=== PATIENT | male | born 1945 | race Caucasian/White ===

== ENCOUNTER → 2020-05-25 | Outpatient (CLI) | payer MEDICARE ==
--- NOTE | 2020-05-25 08:59 | BD ---
EXAMINATION TYPE: Axial Bone Density DATE OF EXAM: 05/25/2020 COMPARISON: 07/12/2010 CLINICAL HISTORY: Height: 61 IN Weight: 129 LBS FRAX RISK QUESTIONS: Family History (Parent hip fracture): YES FATHER RISK FACTORS HISTORY OF: History of Wrist Fracture: YES RT WRIST APPROX AGE 38 Family History of Osteoporosis: YES FATHER Active: YES Diet low in dairy products/other sources of calcium: YES MEDICATIONS: Additional Medications: CALCIUM, VIT D, BLOOD PRESSURE MEDS, CHOLESTEROL MEDS EXAM MEASUREMENTS: Bone mineral densitometry was performed using the [employer] System. Bone mineral density as measured about the Lumbar spine is: ----- L1-L4(G/cm2): 1.159 T Score Values are as follows: ----- L2: -1.2 ----- L3: 0.0 ----- L4: 1.1 ----- L1-L4: -0.2 Bone mineral density has: Increased 6.4% since study of: 07/12/2010 Bone mineral density about the R hip (g/cm2): 0.870 Bone mineral density about the L hip (g/cm2): 0.892 T Score values are as follows: -----R Neck: -1.2 -----L Neck: -1.0 -----R Total: -0.8 -----L Total: -0.1 Bone mineral density has: Increased 0.2% since study of: 07/12/2010 IMPRESSION: Osteopenia (T Score between -2.5 and -1) femoral neck level in the right hip and 2 consecutive levels in the low back. There is slightly increased risk of fracture and the patient may be considered for treatment. Re-Screen 2-5 years. NOTE: T-SCORE=SD OF THE YOUNG ADULT MEAN.
== END | disposition home or self-care (01) ==
LOC: RADBDWWP 07:50
PROVIDERS: ATTEND Family Medicine
DX: M85.851 Other specified disorders of bone density and structure, right thigh (principal); M85.88 Other specified disorders of bone density and structure, other site
CPT/HCPCS: 77080

== ENCOUNTER → 2021-06-02 | Outpatient (CLI) | payer MEDICARE ==
--- NOTE | 2021-06-02 11:21 | US ---
EXAMINATION TYPE: US abdomen complete DATE OF EXAM: 06/02/2021 COMPARISON: NONE CLINICAL HISTORY: 75-year-old male R10 Abdominal and pelvic pain. TECHNIQUE: Multiple sonographic images of the abdomen are obtained. FINDINGS: EXAM MEASUREMENTS: Liver Length: 9.9 cm Gallbladder Wall: 0.2 cm CBD: 0.7 cm Spleen: obscured by overlying bowel Right Kidney: 9.3 x 4.0 x 4.8 cm Left Kidney: 9.6 x 5.2 x 4.7 cm Pancreas: Only a small portion of the pancreatic body is seen. Remainder is obscured by bowel gas sha dowing. Liver: Limited intercostal views shows no gross abnormality. A 2.7 cm cyst is present in the right li anabella lobe. Gallbladder: somewhat obscured by bowel gas, appears wnl as seen Evidence for sonographic Flanagan's sign: no CBD: Partially secured by bowel gas. Mildly dilated. Spleen: obscured by overlying bowel gas Right Kidney: limited views, cyst measuring 1.6 x 1.3 x 1.4cm. No hydronephrosis. Left Kidney: wnl Upper IVC: wnl Abd Aorta: Proximal abdominal aorta is mildly ectatic at 2.9 cm. with atherosclerotic irregularity. IMPRESSION: 1. Exam limitations as above. 2. Only a small portion of the pancreatic body could be visualized. The remainder is obscured by gauri l gas shadowing. 3. A benign 2.7 cm cyst within the right liver lobe. 4. Bile duct mildly dilated at 7 mm. This may be normal given postcholecystectomy status and patient' s age. Correlate for normal alkaline phosphatase and bilirubin levels.
--- NOTE | 2021-06-02 14:18 | FL ---
EXAMINATION: Upper GI examination DATE: 06/02/2021 CLINICAL INDICATION: 75-year-old male R10, abdominal and pelvic pain COMPARISON: Correlation ultrasound same day Total Fluoroscopy Time: 3 minutes 14 seconds 70 images obtained. FINDINGS: Incidentally, there is a small Zenker's diverticulum noted in the cervical esophagus. No abnormal hyp ertrophy of the cricopharyngeus. Otherwise, the esophagus has a normal course and caliber. There is some blunting of the secondary stripping waves with some prolonged pooling of contrast along the proximal one half esophagus when the patient is prone/supine. Mild tertiary peristalsis is seen. No fixed narrowing, suspicious filling defect, or mucosal abnormality is seen. No hiatal hernia is identified. There is no gastroesophageal reflux identified. The stomach and duodenum are free of any persistent filling defect and demonstrate a normal mucosal p attern. IMPRESSION: 1. Small Zenker's diverticulum in the cervical esophagus. This may be incidental in the absence of an y clinical symptoms. Clinically correlate. 2. Mild age-related dysmotility with some blunted secondary stripping waves. 3. Otherwise, unremarkable upper GI examination.
== END | disposition home or self-care (01) ==
LOC: RADUSWWP 08:03
PROVIDERS: ATTEND Family Medicine
DX: K76.89 Other specified diseases of liver (principal); K83.8 Other specified diseases of biliary tract
CPT/HCPCS: 74246; 76700

== ENCOUNTER → 2021-06-11 | Outpatient (CLI) | payer MEDICARE ==
--- NOTE | 2021-06-13 00:01 | MR ---
EXAMINATION TYPE: MR pancreas wo/w con DATE OF EXAM: 06/11/2021 COMPARISON: HISTORY: Abnormal liver enzyme levels CONTRAST: Standard multiplanar, multisequence MRI departmental protocol utilizing 6 mL intravenous Gadavist celia olinium contrast. Liver has normal size and contour. There is 5 mm cyst in the right lobe of the liver. There is 2.5 cm cyst in the medial right lobe of the liver. Spleen is intact. Gallbladder appears normal. The bile d ucts are not dilated. Spleen is intact pancreas appears normal. There is normal appearance of the cole creatic duct. There is good visualization of the common bile duct without evidence of a filling defec t. Common bile duct measures 5 mm. There is no adrenal mass. Kidneys have normal size. There is no hydronephrosis. There is 3 cm cortica l cyst lateral right kidney. There is no evidence of retroperitoneal adenopathy. Contrast images show no pathologic enhancement. There is normal enhancement of the kidneys. There is normal enhancement of the portal venous system. There is no evidence of ascites. IMPRESSION: There are small hepatic cysts. No evidence of a solid liver mass. Normal appendix. No dilated ducts. Right renal cortical cysts.
== END | disposition home or self-care (01) ==
LOC: RADMRIMAIN 14:21
PROVIDERS: ATTEND Internal Medicine Gastroenterology
DX: K76.89 Other specified diseases of liver (principal); N28.1 Cyst of kidney, acquired
CPT/HCPCS: 74183; A9585

== ENCOUNTER → 2022-06-02 | Outpatient (CLI) | payer MEDICARE ==
[2022-06-02 10:57] LABS: Appearance,Urine Clear (Clear); Bilirubin,Urine Negative (Negative); Blood,Urine Negative (Negative); Color,Urine Colorless; Glucose,Urine (UA) Negative (Negative); Ketones,Urine Negative (Negative); Leukocyte Esterase,Urine Negative (Negative); Nitrite,Urine Negative (Negative); PH, Urine 6.5 (5.0-8.0); Protein,Urine Negative (Negative); Specific Gravity,Urine 1.003 (1.001-1.035); Urobilinogen,Urine <2.0 mg/dL (<2.0)
[2022-06-02 14:53] LABS: HCT 49.3 % (39.6-50.0); HGB 16.2 g/dL (13.0-17.0); MCH 30.7 pg (27.0-32.0); MCHC 32.9 g/dL (32.0-37.0); MCV 93.5 fL (80.0-97.0); Mean Platelet Volume 9.7 fL (9.5-12.2); NRBC Per 100 WBC 0 /100 WBCS (0.0-0.0); Platelet Count 294 X 10*3/uL (140-440); RBC 5.27 X 10*6/uL (4.40-5.60); RDW 12.7 % (11.5-14.5); WBC 5.72 X 10*3/uL (4.50-10.00)
[2022-06-02 15:47] LABS: ALT 28 U/L (10-49); AST 25 U/L (14-35); African American GFR (CKD) 99.2 (60.0-200.0); Albumin 4.6 g/dL (3.8-4.9); Albumin/Globulin Ratio 1.76 (1.60-3.17); Alkaline Phosphatase 78 U/L (41-126); BUN/Creat Ratio 16.65 Ratio (12.00-20.00); Blood Urea Nitrogen 13.3 mg/dL (9.0-27.0); C Reactive Protein <0.30 mg/dL (0.00-0.80); Calcium 9.8 mg/dL (8.7-10.3); Carbon Dioxide 26.8 mmol/L (20.0-27.5); Chloride 102 mmol/L (96-109); Chol/HDL Ratio 2.66 Ratio; Globulin 2.6 g/dL (1.6-3.3); Glucose 94 mg/dL (70-110); LDL Cholesterol,Calculated 117.5 mg/dL (0.0-131.0); Non-African American GFR(CKD) 85.6 (60.0-200.0); Sodium 139 mmol/L (135-145); Total Protein 7.3 g/dL (6.2-8.2)
[2022-06-02 17:14] LABS: Erythrocyte Sedimentation Rate 4 mm/Hr (0-20)
== END | disposition home or self-care (01) ==
LOC: LABWHC1 08:14
PROVIDERS: ATTEND Internal Medicine
DX: I10 Essential (primary) hypertension (principal); E78.5 Hyperlipidemia, unspecified; M18.9 Osteoarthritis of first carpometacarpal joint, unspecified; N40.0 Benign prostatic hyperplasia without lower urinary tract symptoms
CPT/HCPCS: 36415; 80053; 80061; 81003; 83036; 84153; 85027; 85652; 86140

== ENCOUNTER → 2023-02-12 | Outpatient (CLI) | payer MEDICARE ==
[2023-02-12 18:09] LABS: African American GFR (CKD) >90 (>60 ml/min/1.73 sqM); Blood Urea Nitrogen 19 mg/dL (9-20); Non-African American GFR(CKD) 83 (>60 ml/min/1.73 sqM)
--- NOTE | 2023-02-12 22:26 | CT ---
EXAMINATION TYPE: CT abdomen pelvis wo/w con DATE OF EXAM: 02/12/2023 COMPARISON: None INDICATION: lower abdominal pain DLP: 770.1 mGycm, Automated exposure control for dose reduction was used. CONTRAST: 100 cc mL of Isovue 300. Study performed with Oral Contrast TECHNIQUE: Axial images were obtained from above the diaphragm to the pubic rami in the axial plane a t 5 mm thick sections. Reconstructed images are reviewed on the computer in the coronal plane. FINDINGS: Limited CT sections are obtained the lung bases. The lung bases are clear. Some coronary artery ellen cification is noted. CT ABDOMEN: Liver: There is a 1.8 cm cyst on the inferior medial right lobe liver. Scattered tiny liver cysts may be present. Spleen: Normal Pancreas: Normal Adrenal glands: Left adrenal gland is thickened at 1.3 cm. A 1.0 cm thickening of the inferior right adrenal gland is present. Gallbladder: Normal Kidneys: No masses are evident. No hydronephrosis is present. There is a 2.0 cm cyst on the lateral right kidney. Delayed images were obtained through the kidneys, which remain unremarkable. Aorta: Vascular calcification is within the aorta. Inferior vena cava: Normal. CT PELVIS: Within the bilateral inguinal regions are pierced be some fat extending towards inguinal c anal. Loops of bowel aren't close approximation and may have some extent into the right inguinal ene on. Correlate with the patient's pain. Loops of bowel within the abdomen and pelvis are normal. No obstruction is evident. There are loop s of bowel which are incompletely distended or lack oral contrast limiting their evaluation. Appendix: Normal as visualized. Urinary bladder: Normal. Genitourinary structures: Prostate is prominent. Scattered calcification is present. Osseous structures: No suspicious lytic or sclerotic lesions. Facet degenerative changes are in the l ower lumbar spine. IMPRESSIONS: 1. Mild bilateral adrenal gland thickening. Adenoma more likely within the differential. Dynamic CT scan with contrast could be performed for additional evaluation. 2. Mild fat-containing inguinal hernias may have a small section of colon involved, right more so boris n left.
== END | disposition home or self-care (01) ==
LOC: RADCTMAIN 17:25
PROVIDERS: ATTEND Family Medicine
DX: K40.90 Unilateral inguinal hernia, without obstruction or gangrene, not specified as recurrent (principal); E27.9 Disorder of adrenal gland, unspecified
CPT/HCPCS: 82565; 84520; 74178; 36415; Q9967

== ENCOUNTER → 2025-02-05 | Outpatient (CLI) | payer MEDICARE ==
--- NOTE | 2025-02-05 11:05 | XR ---
EXAMINATION TYPE: XR chest 2V DATE OF EXAM: 02/05/2025 10:52 AM COMPARISON: None CLINICAL INDICATION: Male, 79 years old with history of R05.1 ACUTE COUGH; [facility] TECHNIQUE: XR chest 2V Frontal and lateral views of the chest. FINDINGS: Lungs/Pleura: There is flattening of the diaphragm with increased lucency of the lungs. No evidence o f pneumothorax, pleural effusion or focal consolidation. Pulmonary vascularity: Unremarkable. Heart/mediastinum: Cardiomediastinal silhouette is unremarkable. Musculoskeletal: No acute osseous pathology. IMPRESSION: 1. No acute cardiopulmonary disease process. 2. COPD changes. [facility], , 02/05/2025 11:03 AM
[2025-02-05 15:11] LABS: HCT 44.9 % (39.6-50.0); MCH 30.9 pg (27.0-32.0); MCHC 33.4 g/dL (32.0-37.0); MCV 92.4 FL (80.0-97.0); NRBC Per 100 WBC 0 X 10*3/uL (0.00-0.01); Platelet Count 334 X 10*3/uL (140-440); RBC 4.86 X 10*6/uL (4.40-5.60); RDW 12.4 % (11.5-14.5); WBC 5.85 X 10*3/uL (4.50-10.00)
[2025-02-05 15:37] LABS: ALT 27 U/L (10-49); AST 25 U/L (14-35); Albumin/Globulin Ratio 1.38 Ratio (1.60-3.17); Alkaline Phosphatase 76 U/L (41-126); Blood Urea Nitrogen 20.8 mg/dL (9.0-27.0); Calcium 9.5 mg/dL (8.7-10.3); Carbon Dioxide 25.5 mmol/L (21.6-31.8); Chloride 100 mmol/L (96-109); Globulin 2.9 g/dL (1.6-3.3); Glucose 143 mg/dL (70-110); Potassium 4.3 mmol/L (3.5-5.5); Sodium 137 mmol/L (135-145); Total Bilirubin 0.4 mg/dL (0.3-1.2); Total Protein 6.9 g/dL (6.2-8.2)
[2025-02-05 15:58] LABS: Basophils # (A) 0.04 X 10*3/uL (0.00-0.10); Basophils % (A) 0.7 %; Eosinophils # (A) 0.17 X 10*3/uL (0.04-0.35); Eosinophils % (A) 2.9 %; Lymphocytes # (A) 1.86 X 10*3/uL (0.90-5.00); Lymphocytes % (A) 31.8 %; Monocytes # (A) 0.35 X 10*3/uL (0.20-1.00); Neutrophils # (A) 3.42 X 10*3/uL (1.80-7.70); Neutrophils % (A) 58.4 %; RBC Morphology Normal (Normal)
== END | disposition home or self-care (01) ==
LOC: LABWHC1 10:25
PROVIDERS: ATTEND Internal Medicine
DX: J44.9 Chronic obstructive pulmonary disease, unspecified (principal)
CPT/HCPCS: 36415; 71046; 80053; 84443; 85025

== ENCOUNTER → 2025-02-09 | Outpatient (CLI) | payer MEDICARE ==
--- NOTE | 2025-02-09 10:27 | CT ---
EXAMINATION TYPE: CT chest w con DATE OF EXAM: 02/09/2025 8:07 AM COMPARISON: Radiograph 02/05/2025 . CLINICAL INDICATION: Male, 79 years old with history of R05.1 ACUTE COUGH; [facility], Chronic cough. TECHNIQUE: Multiple axial images were obtained through the chest. Sagittal and coronal reformats were created for review. MIP was performed on a separate workstation. Contrast used:100ml mL of Isovue [address] DLP: 183 mGycm, Automated exposure control for dose reduction was used. FINDINGS: Incidental 7 mm hypodense nodule left lobe of the thyroid gland. Heart upper limits of normal in size without pericardial effusion. LAD and RCA coronary artery calcif ications are present. Ectatic ascending aorta 3.6 cm. Bovine configuration to the aortic arch. Prominent 1 cm left hilar lymph node. Otherwise, no thoracic lymphadenopathy by CT size criteria. Prominent strandy atelectasis in the lower lungs. Mild emphysematous change. Mild diffuse bronchial w all thickening especially in the lower lungs. No consolidation or pleural effusion. Visualized upper abdomen shows a few scattered small hepatic cysts measuring up to 1.4 cm on the left and 3.0 cm on the right. Gallbladder appears hydropic and 4.7 cm wide open without any surrounding inflammation. Probably due to fasting state. Prominent 1.2 cm posterior sara hepatic lymph node, axial image 60 probably reactive/post inflammato ry. 1.4 cm left adrenal nodule. Both of these can be reassessed at a 3-6 month follow-up adrenal mass protocol CT. Bones: [facility] mid and lower thoracic spine. Moderate to severe degenerative disc disease thoracolumbar junction and upper lumbar spine. IMPRESSION: 1. COPD with mild emphysema. Mild bronchial wall thickening in the lower lungs could reflect superimp osed acute bronchitis or a prominent component of chronic bronchitis. 2. Prominent strandy atelectasis or scarring in the lower lungs. 3. Mildly enlarged posterior portahepatic lymph node measuring 1.2 cm in the upper abdomen may be wagner ctive/post inflammatory. An additional 1.4 cm left adrenal nodule. Recommend reassessment of both of these findings at a 3-6 month follow-up abdomen pelvis CT that can be performed with adrenal mass pro tocol. [facility], , 02/09/2025 10:24 AM
== END | disposition home or self-care (01) ==
LOC: RADCTMAIN 07:44
PROVIDERS: ATTEND Internal Medicine
DX: J44.9 Chronic obstructive pulmonary disease, unspecified (principal); J43.9 Emphysema, unspecified; R59.9 Enlarged lymph nodes, unspecified
CPT/HCPCS: 71260; Q9967